=== PATIENT | male | born 1990 | race Two or more races ===

== ENCOUNTER 2021-03-26 09:19 | Emergency (ER) | payer MEDICAID, OTHER ==
[~2021-03-26] VITALS: Ht 175.3 cm; Wt 68.0 kg
--- NOTE | 2021-03-26 09:35 | NUR ---
R SIDED CHEST WALL PAIN, PAIN WHEN TAKING DEEP BREATHS X YESTERDAY COVID VACCINATED. . DR. ELDRIDGE AT BEDSIDE FOR EVAL. PATIENT A/OX4, BREATHING EVEN AND UNLABORED, NO SOB NOTED. NEEDS ATTENDED.
--- NOTE | 2021-03-26 09:43 | NUR ---
IV LINE ESTABLISHED, BLOOD DRAWN AND SENT TO LAB.
[2021-03-26] MEDS ORDERED: KETOROLAC TROMETHAMINE 15 MG/ML VIAL ONE (09:46)
[2021-03-26] MEDS: KETOROLAC TROMETHAMINE INJ 30 MG/ML VIAL IV ONE (09:49)
--- NOTE | 2021-03-26 09:54 | NUR ---
EMT AT BEDSIDE FOR EKG.
[2021-03-26] MEDS ORDERED: IBUP-1955 PO (10:03)
[2021-03-26 10:04] LABS: BASOPHILS % (AUTO) 0.4 % (0.0-2.0); EOSINOPHILS % (AUTO) 2.7 % (0.0-6.0); HEMATOCRIT 42 % (39-51); HEMOGLOBIN 14.3 g/dL (13.5-17.5); LYMPHOCYTES # (AUTO) 1.6 K/uL (0.8-4.8); LYMPHOCYTES % (AUTO) 18.2 % (20.0-44.0); MEAN CORPUSCULAR HGB CONC 34 g/dl (31.0-36.0); MEAN CORPUSCULAR VOLUME 88 fL (80-96); MONOCYTES # (AUTO) 0.6 K/uL (0.1-1.30); MONOCYTES % (AUTO) 6.4 % (2.0-12.0); NEUTROPHILS # (AUTO) 6.2 K/uL (1.8-8.9); NEUTROPHILS % (AUTO) 72.3 % (43.0-81.0); PLATELET COUNT (AUTO) 424 K/uL (150-450); RED BLOOD CELL COUNT(AUTO) 4.77 MIL/uL (4.5-6.0); WHITE BLOOD COUNT (AUTO) 8.6 K/uL (4.3-11.0)
[2021-03-26 10:07] LABS: CARBON DIOXIDE 27 mmol/L (21-32); CHLORIDE 100 mmol/L (98-107); CREATININE 0.9 mg/dL (0.6-1.3); GLUCOSE 103 mg/dL (74-106); POTASSIUM 4.5 mmol/L (3.5-5.1); SODIUM SERUM 134 mmol/L (136-145); UREA NITROGEN, BLOOD 15 mg/dL (7-18)
--- NOTE | 2021-03-26 11:03 | NUR ---
PT STS HE FEELS BETTER.
[2021-03-26] MEDS ORDERED: IOHEXOL-350 100 ML VIAL IV ONE (11:28)
[2021-03-26] MEDS ORDERED: CT SWABBABLE VALVE TRANS SET 1 EA INFUS.SET MC ONE (11:28)
[2021-03-26] MEDS ORDERED: IV NS 0.9% 250 ML IV ONE (11:28)
--- NOTE | 2021-03-26 13:12 | NUR ---
Patient a/ox4, breathing even and unlabored, no sob noted, needs attended, pain improved. IV removed. Catheter intact and site benign. Pressure and 4x4 applied to site. No bleeding noted. Patient discharged to home in stable condition. Written and verbal after care instructions given. Patient verbalizes understanding of instruction.
[2021-03-26 13:15] VITALS: BP 107/59
== END 2021-03-26 13:16 | disposition home or self-care (01) ==
LOC: ER 09:24
DX: R07.81 Pleurodynia (principal); R07.89 Other chest pain; Z86.11 Personal history of tuberculosis
CPT/HCPCS: 36415; 71045; 71275; 80048; 83880; 84484; 85025; 85378; 93005 ×2; 96374; 99285; J1885; J7050; Q9967

== ENCOUNTER 2023-05-31 09:02 | Emergency (ER) | payer BC, OTHER ==
[~2023-05-31] VITALS: Ht 175.3 cm; Wt 65.8 kg
[~2023-05-31 09:02] MED LIST: IBUP-1955 PO
[2023-05-31 09:55] LABS: BASOPHILS % (AUTO) 0.4 % (0.0-2.0); EOSINOPHILS # (AUTO) 0.4 K/uL (0.0-0.7); HEMATOCRIT 43 % (39-51); HEMOGLOBIN 14.4 g/dL (13.5-17.5); LYMPHOCYTES # (AUTO) 1.4 K/uL (0.8-4.8); LYMPHOCYTES % (AUTO) 23.1 % (20.0-44.0); MEAN CORPUSCULAR HEMOGLOBIN 30 PG (26.0-33.0); MEAN CORPUSCULAR HGB CONC 34 g/dl (31.0-36.0); MEAN CORPUSCULAR VOLUME 89 fL (80-96); MONOCYTES # (AUTO) 0.4 K/uL (0.1-1.30); NEUTROPHILS # (AUTO) 3.9 K/uL (1.8-8.9); NEUTROPHILS % (AUTO) 63.5 % (43.0-81.0); PLATELET COUNT (AUTO) 390 K/uL (150-450); RED BLOOD CELL COUNT(AUTO) 4.82 MIL/uL (4.5-6.0); RED CELL DISTRIBUTION WIDTH 12.2 % (11.5-15.0); WHITE BLOOD COUNT (AUTO) 6.1 K/uL (4.3-11.0)
[2023-05-31 09:56] LABS: APPEARANCE,URINE CLEAR (CLEAR); BILIRUBIN,URINE 1+ (NEGATIVE); BLOOD, URINE NEGATIVE Ery/uL (NEGATIVE); COLOR,URINE YELLOW (YELLOW); KETONES,URINE 2+ mg/dL (NEGATIVE); LEUKOCYTE ESTERASE ,URINE NEGATIVE (NEGATIVE); NITRITE, URINE NEGATIVE (NEGATIVE); PROTEIN,URINE NEGATIVE (NEGATIVE); UGLUCOSE NEGATIVE (NEGATIVE); UROBILINOGEN,URINE 0.2 EU/dL (0.2)
[2023-05-31 10:03] LABS: CALCIUM, SERUM 10.6 mg/dL (8.5-10.1); POTASSIUM 3.5 mmol/L (3.5-5.1)
[2023-05-31 10:10] LABS: ALBUMIN 4.3 g/dL (3.4-5.0); BILIRUBIN,DIRECT 0.2 mg/dL (0.0-0.2); BILIRUBIN,TOTAL 0.6 mg/dL (0.2-1.0); TOTAL PROTEIN, SERUM 8.7 g/dL (6.4-8.2)
[2023-05-31 10:53] LABS: ADD URINE CULTURE NO; BACTERIA,URINE Rare /HPF (None Seen); RBC,URINE 0-2 /HPF (0-2); SQUAMOUS EPITHELIAL CELL,UR Few /HPF (None Seen); WBC,URINE 0-2 /HPF (0-3)
[2023-05-31] MEDS ORDERED: FAMO-131 PO (11:18)
[2023-05-31 11:34] VITALS: BP 127/75; TEMP 98; O2SAT 100
== END 2023-05-31 11:35 | disposition home or self-care (01) ==
LOC: ER 09:02
DX: R10.13 Epigastric pain (principal); R11.0 Nausea; Z79.899 Other long term (current) drug therapy
CPT/HCPCS: 36415; 80048-TC; 80076-TC; 81001; 83690-TC; 85025-TC; 87086-TC